=== PATIENT | female | born 1975 | race African-American/Black ===

== ENCOUNTER 2016-04-10 11:13 | Emergency (ER) | payer OTHER ==
[~2016-04-10] VITALS: Ht 162.6 cm; Wt 99.3 kg
[~2016-04-10 11:13] MED LIST: ALBUTEROL SULF8.5 GM INH; ALPRAZOLAM1 MG ORAL; AMLODIPINE BESY10 MG ORAL; ASPIRIN81 MG ORAL; ATENOLOL100 MG ORAL; AUGMENTIN 875-1 EAC1 ORAL; AZITHROMYCIN250 MG ORAL; IBUPROFEN800 MG ORAL; IMITREX100 M1 ORAL; MEDROL DOSEPAK4 MG ORAL; NITROFURANTOIN100 M2 ORAL; NORCO 5-325 TA1 EACH ORAL; NORCO 7.5/3251 EA ORAL; PENICILLIN V P500 MG ORAL; PROMETHAZI6.25 MG/1 ORAL; PROMETHAZINE-D118 ML ORAL; SPIRIVA18 MCG INH; XANAX1 MG ORAL
[2016-04-10 12:15] VITALS: BP 104/68
[2016-04-10] MEDS ORDERED: PREDNISONE20 M1 PO (12:24)
[2016-04-10] MEDS ORDERED: PROAIR HFA8.5 GM INH (12:24)
[2016-04-10] MEDS ORDERED: XANAX1 MG ORAL (12:24)
[2016-04-10] MEDS ORDERED: PROMETHAZINE-D118 ML ORAL (12:24)
[2016-04-10 12:38] VITALS: BP 104/68
--- NOTE | 2016-04-10 21:55 | Emergency Room Report ---
History of Present Illness General Chief Complaint: Sore Throat Source: Patient Present Illness HPI The pt is a 40 yo F presenting for 2 weeks of productive cough, chest congestion , and sore throat. The pt also states she has anxiety disorder and has been feeling more anxious since the illness. Pt admits to subjective fevers and chills. The pt denies sick contacts or recent travel. Pt denies N, V, SOB, CP, hemoptysis, abd pain. pt denies any other symptoms. Allergies: Coded Allergies: No Known Allergies (Unverified , 02/04/14) Patient History Past Medical History: see triage record, psych hx Pertinent Family History: none Last Menstrual Period: 03/27/16 Now: No Reviewed Nursing Documentation: PMH: Agreed, PSxH: Agreed Nursing Documentation-PMH Past Medical History: No History, Except For Hx Hypertension: Yes Hx Pacemaker: No Hx Asthma: No Hx COPD: No Hx Diabetes: No Hx Cancer: No Hx Gastrointestinal Problems: No Hx Dialysis: No History Of Psychiatric Problem: Yes - anxiety Hx Cerebrovascular Accident: No Hx Seizures: Yes - once years ago Review of Systems All Other Systems: negative except mentioned in HPI Physical Exam Vital Signs Date Time Temp Pulse Resp B/P Pulse Ox O2 Delivery O2 Flow Rate FiO2 04/10/16 11:37 98.1 62 28 104/68 100 Room Air Sp02 EP Interpretation: reviewed, normal General Appearance: no apparent distress, alert, GCS 15, non-toxic Head: normocephalic, atraumatic Eyes: bilateral eye PERRL, bilateral eye normal inspection ENT: hearing grossly normal, normal pharynx, no angioedema, normal voice Neck: full range of motion, supple/symm/no masses Respiratory: normal inspection, chest non-tender, no respiratory distress, no accessory muscle use, decreased breath sounds, wheezing - minimal diffuse Cardiovascular #1: regular rate, rhythm, no edema Musculoskeletal: back normal, gait/station normal, normal range of motion, non- tender Neurologic: alert, oriented x3, responsive, motor strength/tone normal, sensory intact, speech normal Psychiatric: judgement/insight normal, memory normal, mood/affect normal, no suicidal/homicidal ideation Skin: normal color, no rash, warm/dry, well hydrated Lymphatic: no adenopathy Medical Decision Making PA Attestation Dr. Gutierrez is my supervising physician. Patient management was discussed with my supervising physician Diagnostic Impression: Primary Impression: Anxiety Additional Impressions: Medication refill Bronchitis ER Course The pt is a 40 yo F presenting for 2 weeks of productive cough, chest congestion , and sore throat. Differential diagnosis include but not limited to pharyngitis, sinusitis, AOM, bronchitis, PNA Physical exam: vitals WNL. HEENT unremarkable. Lungs: Decreased breath sounds bilaterally. Minimal wheezing. The pt will be IN'ed home with Albuterol, prednisone, cough medication, and refill on anxiolytic medication. The patient will follow up with primary care physician and see psychiatrist as soon as possible. ER precautions are given Last Vital Signs Date Time Temp Pulse Resp B/P Pulse Ox O2 Delivery O2 Flow Rate FiO2 04/10/16 12:38 98.1 62 28 104/68 100 Room Air Status: improved Disposition: HOME, SELF-CARE Condition: Improved Scripts D-Methorphan Hb/Prometh Hcl* (PROMETHAZINE-DM SYRUP*) 118 Ml Syrup 5 ML ORAL Q6H Y for For Cough, #118 ML 0 Refills Prov: TERZIAN,PANCHO P.A. 04/10/16 Albuterol Sulfate* (PROAIR HFA*) 8.5 Gm Hfa.aer.ad 2 PUFFS INH Q6H, #8.5 GM 0 Refills Prov: TERZIAN,PANCHO P.A. 04/10/16 Prednisone (Prednisone) 20 Mg Tablet 20 MG PO DAILY, #5 TAB Prov: TERZIAN,PANCHO P.A. 04/10/16 Alprazolam* (XANAX*) 1 Mg Tablet 1 TAB ORAL DAILY, #10 TAB 0 Refills Prov: TERZIAN,PANCHO P.A. 04/10/16 Referrals: NON PHYSICIAN (PCP) Patient Instructions: Panic Attacks, Acute Bronchitis Additional Instructions: I discussed my findings with the patient. All questions and concerns have been answered. Treatment and medication compliance have been addressed. I advised the patient that they need to follow up with PMD in 3-5 days. Return to ED if pain remains or worsens, cough worsens or remains, you notice blood in your sputum, you notice wheezing, you experience a fever, or if needed for any reason. Patient verbalized understanding of discharge instructions. The patient is advised she needs to followup with psychiatrist as soon as possible. PANCHO MCKOY Apr 10, 2016 21:55
== END 2016-04-10 13:00 | disposition home or self-care (01) ==
LOC: EMR 12:50
DX: F41.9 Anxiety disorder, unspecified (principal); J40 Bronchitis, not specified as acute or chronic; Z76.0 Encounter for issue of repeat prescription; I10 Essential (primary) hypertension
CPT/HCPCS: 99282

== ENCOUNTER 2016-07-22 09:29 | Emergency (ER) | payer OTHER ==
[~2016-07-22] VITALS: Ht 162.6 cm; Wt 113.4 kg
[~2016-07-22 09:29] MED LIST changes: +PREDNISONE20 M1 PO; +PROAIR HFA8.5 GM INH
[2016-07-22 09:36] VITALS: BP 129/83
[2016-07-22] MEDS ORDERED: DEBROX15 M1 RIGHT EAR (10:08)
--- NOTE | 2016-07-22 13:25 | Emergency Room Report ---
History of Present Illness General Chief Complaint: Earache Source: Patient Present Illness HPI [id number] with concern for right ear foreign body that "happened when I was drunk." Tried to get it out herself but states it got worse. Denies actual pain, just feeling of FB sensation. Denies decreased hearing, tinnitus, fever/chills, neck pain, headache. Denies using Qtips to clean ears, drainage from ear. Allergies: Coded Allergies: No Known Allergies (Unverified , 02/04/14) Patient History Past Medical History: none Past Surgical History: none Pertinent Family History: none Social History: Denies: alcohol use, drug use, smoking Last Menstrual Period: 07/22/16 Now: No Immunizations: UTD Reviewed Nursing Documentation: PMH: Agreed, PSxH: Agreed Nursing Documentation-PMH Past Medical History: No History, Except For Hx Hypertension: Yes Hx Pacemaker: No Hx Asthma: No Hx COPD: No Hx Diabetes: No Hx Cancer: No Hx Gastrointestinal Problems: No Hx Dialysis: No History Of Psychiatric Problem: Yes - anxiety Hx Cerebrovascular Accident: No Hx Seizures: Yes - once years ago Review of Systems All Other Systems: negative except mentioned in HPI Physical Exam Vital Signs Date Time Temp Pulse Resp B/P Pulse Ox O2 Delivery O2 Flow Rate FiO2 07/22/16 09:36 97.9 16 129/83 100 Room Air 07/22/16 09:36 74 Sp02 EP Interpretation: reviewed, normal General Appearance: normal inspection, well appearing, no apparent distress, alert Head: normocephalic, atraumatic Eyes: bilateral eye EOMI, bilateral eye PERRL ENT: normal ENT inspection, hearing grossly normal, normal voice, TMs + canals normal, uvula midline, moist mucus membranes, other - Some miniscule debris in right ear canal but no perforation, no FB. No erythema. Pinna non tender to palpation Neck: normal inspection, full range of motion, supple, no bony tend Respiratory: normal inspection, lungs clear, normal breath sounds, no respiratory distress, no retraction, no wheezing Cardiovascular #1: regular rate, rhythm, no edema Gastrointestinal: normal inspection, normal bowel sounds, non tender, soft, no guarding, no hernia Genitourinary: no CVA tenderness Musculoskeletal: normal inspection, back normal, normal range of motion, Zara' s Sign negative Neurologic: normal inspection, alert, oriented x3, responsive, caddie III-XII nml as tested, motor strength/tone normal, speech normal Psychiatric: normal inspection, judgement/insight normal, mood/affect normal Skin: normal inspection, normal color, no rash Lymphatic: normal inspection Medical Decision Making Diagnostic Impression: Primary Impression: Earache symptoms ER Course Concern for FB in right ear No FB visualized, mild dirt amount No otitis media No otitis externa Gave debrox drops for proper cleaning PMD followup as needed Last Vital Signs Date Time Temp Pulse Resp B/P Pulse Ox O2 Delivery O2 Flow Rate FiO2 07/22/16 10:15 97.9 66 14 116/88 98 Room Air Status: improved Disposition: HOME, SELF-CARE Condition: Improved Scripts Carbamide Peroxide (DEBROX) 15 Ml Drops 10 DROP RIGHT EAR TWICE A DAY for 4 Days, ML 0 Refills Prov: CHRISTIAN FARRELL M.D. 07/22/16 Referrals: NON PHYSICIAN (PCP) Patient Instructions: Ear Foreign Body, [id number] Additional Instructions: - Use debrox in right ear as prescribed CHRISTIAN FARRELL M.D. Jul 22, 2016 13:25
== END 2016-07-22 10:15 | disposition home or self-care (01) ==
LOC: EMR 10:10
DX: H92.01 Otalgia, right ear (principal); I10 Essential (primary) hypertension
CPT/HCPCS: 99283

== ENCOUNTER → 2017-03-07 | Emergency (ER) | payer OTHER ==
[~2017-03-07] VITALS: Ht 162.6 cm; Wt 108.9 kg
[~2017-03-07] MED LIST changes: +ADVAIR 100-501 EACH INH; +BUSPAR10 MG ORAL; +DEBROX15 M1 RIGHT EAR; +GUAIFENESIN1200 MG PO; +HYDROCHLOROTH12.5 M2 ORAL; +PROMETHAZINE-C118 M1 ORAL; +Promethazine/Codeine 5ml UD ORAL ONE; +SPIRIVA INHALE1 PUF1 INH
[2017-03-07 13:23] VITALS: BP 125/83
--- NOTE | 2017-03-07 13:50 | Emergency Room Report ---
History of Present Illness General Chief Complaint: Upper Respiratory Illness Source: Patient Present Illness HPI 41-year-old female presents to the emergency department complaining of productive cough with congestion and intermittent sore throat with chills x3 weeks. Patient reports history of asthma she denies measured fevers but has had some hot flashes. Patient denies skin color changes, rashes, abdominal pain , nausea, vomiting, neck pain or stiffness she denies lower extremity edema. Reports that after prolonged coughing and her chest does feel sort however she denies chest pain. Has been using [id number] cough and cold medications with no relief. Denies ill contacts or recent travel. Denies Palpitations, LOC, AMS, dizziness, Changes in Vision, Sensation, paresthesias, or a sudden severe headache. Allergies: Coded Allergies: No Known Allergies (Unverified , 02/04/14) Patient History Past Medical History: see triage record, asthma Past Surgical History: none Pertinent Family History: none Last Menstrual Period: 02/20/17. Now: No Reviewed Nursing Documentation: PMH: Agreed, PSxH: Agreed Nursing Documentation-PMH Hx Hypertension: Yes Hx Pacemaker: No Hx Asthma: No Hx COPD: No Hx Diabetes: No Hx Cancer: No Hx Gastrointestinal Problems: No Hx Dialysis: No Hx Cerebrovascular Accident: No Hx Seizures: Yes - once years ago Review of Systems All Other Systems: negative except mentioned in HPI Physical Exam Vital Signs Date Time Temp Pulse Resp B/P (MAP) Pulse Ox O2 Delivery O2 Flow Rate FiO2 03/07/17 12:52 97.9 67 20 125/83 99 Room Air Sp02 EP Interpretation: reviewed, normal General Appearance: no apparent distress, alert, GCS 15, non-toxic Head: normocephalic, atraumatic Eyes: bilateral eye normal inspection, bilateral eye PERRL ENT: hearing grossly normal, normal pharynx, no angioedema, normal voice, TMs + canals normal, uvula midline, nasal congestion, pharyngeal erythema Neck: full range of motion, no meningismus, no bony tend, supple/symm/no masses Respiratory: chest non-tender, lungs clear, speaking full sentences, wheezing Cardiovascular #1: regular rate, rhythm, no edema, normal capillary refill Musculoskeletal: back normal, gait/station normal, normal range of motion, non- tender Neurologic: alert, oriented x3, responsive, motor strength/tone normal, sensory intact, speech normal Skin: normal color, no rash, warm/dry, well hydrated Medical Decision Making PA Attestation Dr. Gonzales is my supervising Physician whom patient management has been discussed with. Diagnostic Impression: Primary Impression: Bronchitis ER Course 41-year-old female presents to the emergency department complaining of productive cough with congestion and intermittent sore throat with chills x3 weeks. Patient reports history of asthma she denies measured fevers but has had some hot flashes. Patient denies skin color changes, rashes, abdominal pain , nausea, vomiting, neck pain or stiffness she denies lower extremity edema. Reports that after prolonged coughing and her chest does feel sort however she denies chest pain. Has been using [id number] cough and cold medications with no relief. Denies ill contacts or recent travel. Denies Palpitations, LOC, AMS, dizziness, Changes in Vision, Sensation, paresthesias, or a sudden severe headache. Ddx considered but are not limited to URI, pneumonia, PE, strep pharyngitis, meningitis. Vital signs: Pt.is afebrile VS are WNL H&PE are most consistent with bronchitis ORDERS: -CXR: Normal ED INTERVENTIONS: -Pt Declined albuterol HHN. -Cough Syrup DISCHARGE: At this time pt. is stable for d/c to home. Will provide printed patient care instructions, and any necessary prescriptions. Care plan and follow up instructions have been discussed with the patient prior to discharge. Chest X-Ray Diagnostic Results Chest X-Ray Diagnostic Results : Chest X-Ray Ordered: Yes # of Views/Limited/Complete: 1 View Indication: Chest Pain EP Interpretation: Yes KRANTHI Xray: Interpretation reviewed, by supervising MD, and agrees with findings. Interpretation: no consolidation, no effusion, no pneumothorax Impression: No acute disease Electronically Signed by: Tracey Gonsalez PA-C Last Vital Signs Date Time Temp Pulse Resp B/P (MAP) Pulse Ox O2 Delivery O2 Flow Rate FiO2 03/07/17 13:23 97.9 20 125/83 99 Room Air 03/07/17 13:23 67 Disposition: HOME, SELF-CARE Condition: Stable Scripts Guaifenesin (Guaifenesin) 1,200 Mg Tab.er.12h 1200 MG PO BID, #20 TAB Prov: Tracey Gonsalez P.Pasquale. 03/07/17 Albuterol Sulfate* (ALBUTEROL SULFATE MDI*) 8.5 Gm Hfa.aer.ad 2 PUFF INH Q6H, #1 INH 0 Refills Prov: Tracey Gonsalez 03/07/17 Codeine/Promethazine Hcl* (PROMETHAZINE-CODEINE SYRUP*) 118 Ml Syrup 5 ML ORAL Q6H Y for For Cough, #120 ML 0 Refills Prov: Tracey Gonsalez 03/07/17 Patient Instructions: Acute Bronchitis, Ydia-up-Hbie Additional Instructions: Take medications as directed. Follow up with a Primary Care Provider in 3-5 days, even if your symptoms have resolved. --Please review list of primary care clinics, if you do not already have a primary care provider Return sooner to ED if new symptoms occur, or current symptoms become worse. Do not drink alcohol, drive, or operate heavy machinery while taking Cough Syrup as this may cause drowsiness. - Please note that this Emergency Department Report was dictated using [employer] correspondent technology software, occasionally this can lead to erroneous entry secondary to interpretation by the dictation equipment. Tracey Gonsalez Mar 07, 2017 13:50
[2017-03-07 14:09] VITALS: BP 125/83
--- NOTE | 2017-03-08 05:02 | Diagnostic Imaging Report ---
Indication: Cough Technique: One view of the chest Comparison: 08/30/2015 Findings: Lungs and pleural spaces are clear. Heart size is normal. No significant interval change Impression: No acute process
== END | disposition home or self-care (01) ==
LOC: EMR 13:10
DX: J40 Bronchitis, not specified as acute or chronic (principal); I10 Essential (primary) hypertension
CPT/HCPCS: 71010; 99284

== ENCOUNTER 2017-04-04 14:42 | Emergency (ER) | payer OTHER ==
[~2017-04-04] VITALS: Ht 162.6 cm; Wt 87.1 kg
[~2017-04-04 14:42] MED LIST changes: -BUSPAR10 MG ORAL; -Promethazine/Codeine 5ml UD ORAL ONE
[2017-04-04] MEDS ORDERED: LORazepam 1mg tab ORAL ONE (15:15)
--- NOTE | 2017-04-04 15:17 | Emergency Room Report ---
History of Present Illness General Chief Complaint: General Complaint Present Illness HPI 41-year-old female presents to the emergency department complaining of anxiety attack. Patient has had history of intermittent attacks and was previously prescribed Ativan once and Klonopin once for which she did not need to use regularly. Patient states that she experienced the in the family 2 days ago which she believes is triggered her anxiety. Patient denies night sweats, fevers, chills, recent changes in weight. Denies CP, Palpitations, LOC, AMS, dizziness, Changes in Vision, Sensation, paresthesias, or a sudden severe headache. Allergies: Coded Allergies: No Known Allergies (Unverified , 02/04/14) Patient History Past Medical History: see triage record Past Surgical History: none Pertinent Family History: none Now: No Immunizations: UTD Reviewed Nursing Documentation: PMH: Agreed, PSxH: Agreed Nursing Documentation-PMH Hx Hypertension: Yes Hx Pacemaker: No Hx Asthma: No Hx COPD: No Hx Diabetes: No Hx Cancer: No Hx Gastrointestinal Problems: No Hx Dialysis: No Hx Cerebrovascular Accident: No Hx Seizures: Yes - once years ago Review of Systems All Other Systems: negative except mentioned in HPI Physical Exam Vital Signs Date Time Temp Pulse Resp B/P (MAP) Pulse Ox O2 Delivery O2 Flow Rate FiO2 04/04/17 14:46 98.6 77 20 147/87 99 Room Air Sp02 EP Interpretation: reviewed, normal General Appearance: no apparent distress, alert, GCS 15, non-toxic Head: normocephalic, atraumatic Eyes: bilateral eye normal inspection, bilateral eye PERRL ENT: hearing grossly normal, normal voice Neck: full range of motion, supple/symm/no masses Respiratory: chest non-tender, lungs clear, normal breath sounds, speaking full sentences Cardiovascular #1: regular rate, rhythm, no edema, normal capillary refill Rectal: deferred Musculoskeletal: back normal, gait/station normal, normal range of motion, non- tender Neurologic: alert, oriented x3, responsive, motor strength/tone normal, sensory intact, speech normal, grossly normal Psychiatric: judgement/insight normal, anxious Skin: normal color, no rash, warm/dry, well hydrated Lymphatic: no adenopathy Medical Decision Making PA Attestation Dr. miguel is my supervising Physician whom patient management has been discussed with. Diagnostic Impression: Primary Impression: Anxiety reaction ER Course 41-year-old female presents to the emergency department complaining of anxiety attack. Patient has had history of intermittent attacks and was previously prescribed Ativan once and Klonopin once for which she did not need to use regularly. Patient states that she experienced the in the family 2 days ago which she believes is triggered her anxiety. Patient denies night sweats, fevers, chills, recent changes in weight. Denies CP, Palpitations, LOC, AMS, dizziness, Changes in Vision, Sensation, paresthesias, or a sudden severe headache. Ddx considered but are not limited to anxiety, AR, PE, asthma, thyroid storm, hyperthyroid, EPS Vital signs: are WNL, pt. is afebrile H&PE are most consistent with anxiety attack ORDERS: none required at this time, the diagnosis is clinical ED INTERVENTIONS: - 1mg Ativan PO -Discussed with patient that she needs to follow up with primary care provider for refill of controlled anti-anxiety medications. Discussed the patient will give her temporary prescription for BuSpar which she said non-controlled antianxiety medication. Patient is also given [facility] referral information DISCHARGE: At this time pt. is stable for d/c to home. Will provide printed patient care instructions, and any necessary prescriptions. Care plan and follow up instructions have been discussed with the patient prior to discharge. Last Vital Signs Date Time Temp Pulse Resp B/P (MAP) Pulse Ox O2 Delivery O2 Flow Rate FiO2 04/04/17 14:46 98.6 77 20 147/87 99 Room Air Disposition: HOME, SELF-CARE Condition: Stable Scripts Buspirone Hcl* (BUSPAR*) 10 Mg Tablet 10 MG ORAL THREE TIMES A DAY, #15 TAB 0 Refills Prov: Tracey Gonsalez 04/04/17 Patient Instructions: Medical Screening Exam, Medicine Refill at the Emergency Department Additional Instructions: Take medications as directed. Follow up with a Primary Care Provider in 3-5 days, even if your symptoms have resolved. --Please review list of primary care clinics, if you do not already have a primary care provider Return sooner to ED if new symptoms occur, or current symptoms become worse. - Please note that this Emergency Department Report was dictated using [employer] technology software, occasionally this can lead to erroneous entry secondary to interpretation by the dictation equipment. Tracey Gonsalez Apr 04, 2017 15:17
[2017-04-04] MEDS ORDERED: BUSPAR10 MG ORAL (15:18)
[2017-04-04 15:36] VITALS: BP 142/80
== END 2017-04-04 15:25 | disposition home or self-care (01) ==
LOC: EMR 15:05
DX: F41.1 Generalized anxiety disorder (principal); I10 Essential (primary) hypertension
CPT/HCPCS: 99283

== ENCOUNTER 2017-04-27 11:07 | Emergency (ER) | payer OTHER ==
[~2017-04-27] VITALS: Ht 165.1 cm; Wt 108.9 kg
[~2017-04-27 11:07] MED LIST changes: +BUSPAR10 MG ORAL
[2017-04-27 12:00] VITALS: BP 132/85
[2017-04-27] MEDS ORDERED: ROBITUSSIN COU237 M1 PO (12:01)
--- NOTE | 2017-05-01 23:47 | Emergency Room Report ---
History of Present Illness General Chief Complaint: Upper Respiratory Illness Source: Patient Present Illness HPI Patient present with complaints of cough and congestion ongoing for the past several days Denies any vomiting or diarrhea Denies any fevers or chills denies any neck pain or photophobia Patient requesting cough syrup Denies any recent travel denies any pleurisy Allergies: Coded Allergies: No Known Allergies (Unverified , 02/04/14) Patient History Past Medical History: see triage record Pertinent Family History: none Now: No Reviewed Nursing Documentation: PMH: Agreed, PSxH: Agreed Nursing Documentation-PMH Past Medical History: No History, Except For Hx Hypertension: Yes Hx Pacemaker: No Hx Asthma: No Hx COPD: No Hx Diabetes: No Hx Cancer: No Hx Gastrointestinal Problems: No Hx Dialysis: No Hx Cerebrovascular Accident: No Hx Seizures: Yes - once years ago Review of Systems All Other Systems: negative except mentioned in HPI Physical Exam Vital Signs Date Time Temp Pulse Resp B/P (MAP) Pulse Ox O2 Delivery O2 Flow Rate FiO2 04/27/17 11:13 97.5 64 17 132/85 99 Room Air Sp02 EP Interpretation: reviewed, normal General Appearance: well appearing, no apparent distress Head: normocephalic, atraumatic Eyes: bilateral eye PERRL, bilateral eye EOMI ENT: hearing grossly normal, normal pharynx, TMs + canals normal, uvula midline Neck: full range of motion, supple, no meningismus, no bony tend Respiratory: lungs clear, normal breath sounds, no rhonchi, no respiratory distress, no retraction, no accessory muscle use Cardiovascular #1: normal peripheral pulses, regular rate, rhythm, no edema, no gallop, no JVD, no murmur Gastrointestinal: normal bowel sounds, non tender, soft, no mass, no organomegaly, non-distended, no guarding, no hernia, no pulsatile mass, no rebound Genitourinary: no CVA tenderness Musculoskeletal: normal inspection Neurologic: oriented x3, responsive, metal machine operator III-XII nml as tested, motor strength/ tone normal, sensory intact Psychiatric: mood/affect normal Skin: normal color, no rash, warm/dry, palpation normal Lymphatic: normal inspection, no adenopathy Medical Decision Making Diagnostic Impression: Primary Impression: uri ER Course Patient is a fairly benign evaluation Is not hypoxic or tachypneic Respirations are appropriate Patient has recent imaging as well Patient was requested to followup with primary physician for cough syrup And is stable for close outpatient followup Last Vital Signs Date Time Temp Pulse Resp B/P (MAP) Pulse Ox O2 Delivery O2 Flow Rate FiO2 04/27/17 12:00 97.5 64 18 132/85 99 Room Air Status: improved Disposition: HOME, SELF-CARE Condition: Stable Scripts Guaifenesin/Dextromethorphan (ROBITUSSIN COUGH-CHEST DM LIQ) 237 Ml Liquid 10 ML PO QHS, #118 ML Prov: LUCIA BRYAN D.O. 04/27/17 Referrals: [facility],REFERRING (PCP) Patient Instructions: Upper Respiratory Infection, Adult Additional Instructions: Patient is provided with the discharge instructions notified to follow up with primary doctor in the next 2-3 days otherwise return to the er with any worsening symptoms. Please note that this report is being documented using [employer] technology. This can lead to erroneous entry secondary to incorrect interpretation by the dictating instrument. LUCIA BRYAN D.O. May 01, 2017 23:47
== END 2017-04-27 12:00 | disposition home or self-care (01) ==
LOC: EMR 12:00
DX: J06.9 Acute upper respiratory infection, unspecified (principal)
CPT/HCPCS: 99282